=== PATIENT | male | born 1965 | race African-American/Black ===

== ENCOUNTER 2021-03-21 09:48 | Emergency (ER) | payer OTHER ==
[~2021-03-21] VITALS: Ht 188 cm; Wt 103.0 kg
[2021-03-21 09:50] VITALS: BP 142/99
[2021-03-21] MEDS ORDERED: METHOCARBAMOL 500MG TABLET PO ONE (10:30)
[2021-03-21] MEDS ORDERED: KETOROLAC 60MG/2ML VIAL IM ONE (10:30)
[2021-03-21] MEDS ORDERED: NAPR-681 MT (11:02)
[2021-03-21] MEDS ORDERED: METH-773 MT (11:02)
== END 2021-03-21 11:00 | disposition home or self-care (01) ==
LOC: ER 10:26
DX: S39.012A Strain of muscle, fascia and tendon of lower back, initial encounter (principal); V49.49XA Driver injured in collision with other motor vehicles in traffic accident, initial encounter; Y93.89 Activity, other specified; Y92.89 Other specified places as the place of occurrence of the external cause; Y99.8 Other external cause status
CPT/HCPCS: 72100; 96372; 99283; J1885

== ENCOUNTER 2022-02-27 08:54 | Emergency (ER) | payer OTHER ==
[~2022-02-27] VITALS: Ht 188 cm; Wt 102.0 kg
[~2022-02-27 08:54] MED LIST: METH-773 MT; NAPR-681 MT
[2022-02-27] MEDS ORDERED: GUAI-741 MT (15:35)
[2022-02-27 15:54] VITALS: BP 126/86
== END 2022-02-27 15:55 | disposition home or self-care (01) ==
LOC: ER 08:54
DX: J40 Bronchitis, not specified as acute or chronic (principal)
CPT/HCPCS: 71045; 99283